=== PATIENT | male | born 1980 | race Caucasian/White ===

== ENCOUNTER 2019-01-04 12:41 | Emergency (ER) | payer MEDICAID ==
[2019-01-04] MEDS ORDERED: Sodium Chloride 0.9% 10 ML Syringe FLUSH PRN (12:54)
[2019-01-04] MEDS ORDERED: Ketorolac 30 MG/ML SDV IVPUSH ONE (12:54)
[2019-01-04] MEDS ORDERED: Ondansetron 4 MG/2 ML SDV IVPUSH ONE (13:14)
[2019-01-04] MEDS ORDERED: Sodium Chloride 0.9% 1,000 ML IV SCH (13:15)
--- NOTE | 2019-01-04 13:35 | EDM.PDOC ---
ED HPI GENERAL MEDICAL PROBLEM - General Chief Complaint: Flank Pain Stated Complaint: POSSIBLE KIDNEY STONES Time Seen by Provider: 01/04/19 13:27 Source of Information: Reports: Patient, Family, RN Notes Reviewed History Limitations: Reports: No Limitations - History of Present Illness INITIAL COMMENTS - FREE TEXT/NARRATIVE: 38-year-old gentleman presents emergency department today complaint of left flank pain, he does have a known history of nephrolithiasis this particular pain started last night was waxing and waning and then became constant later today Bilateral Flank Pain Score (Numeric/FACES): 10 - Related Data Allergies Allergy/AdvReac Type Severity Reaction Status Date / Time No Known Allergies Allergy Verified 01/04/19 12:54 Home Meds: Home Meds NK [No Known Home Meds] 01/04/19 [History] Past Medical History Genitourinary History: Reports: Renal Calculus - Infectious Disease History Infectious Disease History: Reports: Chicken Pox Social & Family History - Tobacco Use Smoking Status *Q: Never Smoker Second Hand Smoke Exposure: No - Caffeine Use Caffeine Use: Reports: Soda - Recreational Drug Use Recreational Drug Use: No ED ROS GENERAL - Review of Systems Review Of Systems: See Below Constitutional: Reports: No Symptoms HEENT: Reports: No Symptoms Respiratory: Reports: No Symptoms Cardiovascular: Reports: No Symptoms GI/Abdominal: Reports: Abdominal Pain, Nausea : Reports: Flank Pain ED EXAM, RENAL/ - Physical Exam Exam: See Below Exam Limited By: No Limitations General Appearance: Alert, Mild Distress Respiratory/Chest: No Respiratory Distress, Lungs Clear, Normal Breath Sounds Cardiovascular: Regular Rate, Rhythm, No Murmur GI/Abdominal: Soft, Tender (Along the left flank) Course - Vital Signs Last Recorded V/S: Last Vital Signs Temp 95.2 F L 01/04/19 13:09 Pulse 82 01/04/19 13:09 Resp 22 H 01/04/19 13:09 BP 147/88 H 01/04/19 13:09 Pulse Ox 99 01/04/19 13:09 - Orders/Labs/Meds Orders: Active Orders 24 hr Category Date Time Status Sodium Chloride 0.9% [Normal Saline] 1,000 ml Med 01/04/19 13:15 Active IV ASDIRECTED Sodium Chloride 0.9% [Saline Flush] Med 01/04/19 12:54 Active 10 ml FLUSH ASDIRECTED PRN Saline Lock Insert [OM.PC] Routine Oth 01/04/19 12:54 Ordered Medication Orders Sodium Chloride (Normal Saline) 1,000 mls @ 999 mls/hr IV ASDIRECTED MARELY Last Admin: 01/04/19 13:27 Dose: 999 mls/hr Sodium Chloride (Saline Flush) 10 ml FLUSH ASDIRECTED PRN PRN Reason: Keep Vein Open Last Admin: 01/04/19 13:02 Dose: 10 ml Labs: Laboratory Tests 01/04/19 01/04/19 01/04/19 Range/Units 13:42 13:42 14:05 WBC 10.9 (4.5-11.0) K/uL RBC 5.46 (4.30-5.90) M/uL Hgb 16.5 H (12.0-15.0) g/dL Hct 48.0 (40.0-54.0) % MCV 88 (80-98) fL MCH 30 (27-31) pg MCHC 34 (32-36) % Plt Count 116 L (150-400) K/uL Neut % (Auto) 82 H (36-66) % Lymph % (Auto) 12 L (24-44) % [place] % (Auto) 6 (2-6) % Eos % (Auto) 0 L (2-4) % Baso % (Auto) 0 (0-1) % Sodium 137 L (140-148) mmol/L Potassium 4.1 (3.6-5.2) mmol/L Chloride 102 (100-108) mmol/L Carbon Dioxide 25 (21-32) mmol/L Anion Gap 14.1 H (5.0-14.0) mmol/L BUN 16 (7-18) mg/dL Creatinine 1.3 (0.8-1.3) mg/dL Est Cr Clr Drug Dosing 72.03 mL/min Estimated GFR (MDRD) > 60 (>60) Glucose 115 H (74-106) mg/dL Calcium 9.2 (8.5-10.1) mg/dL Urine Color Yellow Urine Appearance Clear Urine pH 7.0 (4.5-8.0) Ur Specific [place] 1.015 (1.008-1.030) Urine Protein Negative (NEGATIVE) mg/dL Urine Glucose (UA) Normal (NEGATIVE) mg/dL Urine Ketones 50 H (NEGATIVE) mg/dL Urine Occult Blood Large (NEGATIVE) Urine Nitrite Negative (NEGAITVE) Urine Bilirubin Negative (NEGATIVE) Urine Urobilinogen Normal (NORMAL) mg/dL Ur Leukocyte Esterase Negative (NEGATIVE) Urine RBC 10-20 H (0-5) Urine WBC 0-5 (0-5) Ur Epithelial Cells Rare Amorphous Sediment Not seen Urine Bacteria Moderate Urine Mucus Moderate Meds: Medications Generic Name Dose Route Start Last Admin Trade Name Freq PRN Reason Stop Dose Admin Sodium Chloride 1,000 mls @ 999 mls/hr 01/04/19 13:15 01/04/19 13:27 Normal Saline IV 999 mls/hr ASDIRECTED MARELY Administration Sodium Chloride 10 ml 01/04/19 12:54 01/04/19 13:02 Saline Flush FLUSH 10 ml ASDIRECTED PRN Administration Keep Vein Open Discontinued Medications Generic Name Dose Route Start Last Admin Trade Name Freq PRN Reason Stop Dose Admin Ketorolac Tromethamine 30 mg 01/04/19 12:54 01/04/19 13:01 Toradol IVPUSH 01/04/19 12:55 30 mg ONETIME ONE Administration Ondansetron HCl 4 mg 01/04/19 13:14 01/04/19 13:24 Zofran IVPUSH 01/04/19 13:15 4 mg ONETIME ONE Administration Departure - Departure Time of Disposition: 14:52 Disposition: Home, Self-Care 01 Condition: Fair Clinical Impression: Left nephrolithiasis - Discharge Information Referrals: Jone Petty MD [Primary Care Provider] - Forms: ED Department Discharge Additional Instructions: Use ibuprofen for baseline pain control, use Percocet for breakthrough pain, Please followup with your primary care provider in 3-5 days if not better, please call return to the emergency department with worsening of symptoms. - My Orders Last 24 Hours: My Active Orders 01/04/19 13:15 Sodium Chloride 0.9% [Normal Saline] 1,000 ml IV ASDIRECTED - Assessment/Plan Last 24 Hours: My Active Orders 01/04/19 13:15 Sodium Chloride 0.9% [Normal Saline] 1,000 ml IV ASDIRECTED Plan: Assessment Acuity = acute Site and laterality = left nephrolithiasis Etiology = unknown Manifestations = left flank pain Location of injury = Home Lab values = CBC, BMP unremarkable urinalysis reveals 10-[address] scan demonstrates a 4-5 mm stone distal left ureter approximately 2 -3 cm from the UVJ Plan Prescription written for Percocet 5/325 one tab by mouth 3 times a day when necessary total #10 he is going to push fluids follow-up primary care 3-5 days if no improvement This note was dictated using [employer]ik[employer] voice recognition software please call with any questions on syntax or grammar.
--- NOTE | 2019-01-04 14:43 | CRLCT ---
INDICATION: left flank [id number] images HISTORY: Left flank pain. COMPARISON: None. TECHNIQUE: CT of the abdomen and pelvis. No intravenous contrast. Coronal/sagittal reconstruction images. FINDINGS: Lung bases: There is no pleural or pericardial effusion. The heart size is normal. There is dependent atelectasis. There is no acute airspace disease. There is no basilar pneumothorax. Abdomen/pelvis: The hepatic morphology is normal. No dilation of intrahepatic biliary radicals. No perihepatic ascites. No calcified gallstone. Normal caliber common bile duct. No pancreatic mass, pancreatic duct dilation, or glandular atrophy. The spleen size is normal. Bilateral nephroliths. For example, a 4 mm stone in the interpolar region of the left kidney on image 97 of series 2. Left hydronephrosis and hydroureter. This is secondary to a stone measuring 4-5 mm in the distal left ureter, which measures 708 Hounsfield units. There is no right-sided urolith identified. The seminal vesicles are normal. There is no wall thickening within the small bowel or colon. There is no perienteric edema. There is no evidence for a small bowel or colonic obstruction. No evidence for acute appendicitis. Nonenlarged retroperitoneal lymph nodes. No abdominal or pelvic lymphadenopathy by size criteria. The bone windows demonstrate no lytic or blastic bone lesions. There is osteophytic spurring at the endplates of the thoracolumbar spine. On sagittal reconstruction images, there is discogenic sclerosis and disc height loss at L4-5 and L5-S1. Minimal retrolisthesis of L4 on L5. IMPRESSION: 1. Moderate left hydronephrosis and hydroureter, secondary to a 4-5 mm stone in the distal left ureter. This stone is approximately 2-3 cm from the left UVJ. 2. Additional nephroliths in both intrarenal collecting systems. 3. Normal caliber appendix. 4. No abdominal or pelvic lymphadenopathy. Dictated by Ron Mccracken MD @ 01/04/2019 2:40:52 PM Please note that all CT scans at this facility use dose modulation, iterative reconstruction, and/or weight-based dosing when appropriate to reduce radiation dose to as low as reasonably achievable. Dictated by: Ron Mccracken MD @ 01/04/2019 14:41:09 (Electronically Signed)
== END 2019-01-04 15:04 | disposition home or self-care (01) ==
LOC: JP.ED 12:41
DX: N13.2 Hydronephrosis with renal and ureteral calculous obstruction (principal)
CPT/HCPCS: 36415; 74176; 80048; 81001; 85025; 96361; 96374; 96375; 99284; J1885; J2405; J7030

== ENCOUNTER 2023-05-27 06:35 | Emergency (ER) | payer MEDICAID ==
[2023-05-27] MEDS ORDERED: Sodium Chloride 0.9% 1,000 ML IV STA (07:00)
[2023-05-27] MEDS ORDERED: Ondansetron 4 MG/2 ML SDV IVPUSH ONE (07:00)
[2023-05-27] MEDS ORDERED: Sodium Chloride 0.9% 10 ML Syringe FLUSH PRN ×2 (07:00)
[2023-05-27] MEDS ORDERED: Ketorolac 30 MG/ML SDV IVPUSH ONE (07:04)
[2023-05-27 07:15] LABS: BASOPHILS ABSOLUTE AUTO 0.03 K/uL (0.00-0.10); BASOPHILS PERCENT AUTO 0.3 % (0.1-1.3); EOSINOPHILS ABSOLUTE AUTO 0.04 K/uL (0.00-0.40); EOSINOPHILS PERCENT AUTO 0.4 % (0.0-5.4); HEMATOCRIT 48.2 % (38.4-49.7); HEMOGLOBIN 16.9 g/dL (12.9-16.9); IMMATURE GRAN ABSOLUTE AUTO 0.05 K/uL (0.00-0.23); IMMATURE GRAN PERCENT AUTO 0.4 % (0.0-0.7); LYMPHOCYTES ABSOLUTE AUTO 1.87 K/uL (0.8-3.3); LYMPHOCYTES PERCENT AUTO 16.5 % (11.4-47.7); MEAN CORPUSCULAR HEMOGLOBIN 30.6 pg (31.6-35.5); MEAN CORPUSCULAR HGB CONC 35.1 g/dL (31.6-35.5); MEAN CORPUSCULAR VOLUME 87.2 fL (81.4-99.0); MONOCYTES ABSOLUTE AUTO 0.59 K/uL (0.20-0.90); MONOCYTES PERCENT AUTO 5.2 % (3.3-12.6); NEUTROPHILS ABSOLUTE AUTO 8.78 K/uL (1.0-7.6); NEUTROPHILS PERCENT AUTO 77.2 % (40.0-78.1); PLATELET COUNT,PLT 108 K/uL (130-375); RED BLOOD CELL COUNT 5.53 M/uL (4.14-5.76); WHITE BLOOD CELL COUNT,WBC 11.4 K/uL (3.2-11.0)
[2023-05-27] MEDS: Morphine 4 MG/ML Syringe IVPUSH PRN ×2 (07:21→09:18)
[2023-05-27 07:28] LABS: ANION GAP 11.2 mmol/L (5.0-14.0); CALCIUM 8.8 mg/dL (8.5-10.1); CREATININE 1.2 mg/dL (0.8-1.3); EST CRCL DRUG DOSING (CG) 82.8 mL/min
[2023-05-27 08:53] LABS: APPEARANCE,URINE SLIGHTLY CLOUDY (CLEAR); BILIRUBIN,URINE NEGATIVE (NEGATIVE); COLOR,URINE YELLOW (YELLOW); GLUCOSE,URINE NEGATIVE (NEGATIVE); KETONES,URINE NEGATIVE (NEGATIVE); LEUKOCYTE ESTERASE,URINE NEGATIVE (NEGATIVE); NITRITE,URINE NEGATIVE (NEGATIVE); OCCULT BLOOD,URINE MODERATE (NEGATIVE); PROTEIN,URINE 100 mg/dL (NEGATIVE); UROBILINOGEN,URINE 0.2 EU/dL (0.2-1.0)
[2023-05-27 09:00] LABS: AMORPHOUS SEDIMENT,URINE NOT SEEN; BACTERIA,URINE NOT SEEN; EPITHELIAL CELLS,URINE FEW; MUCUS,URINE MODERATE; RBC,URINE 20-30 (0-5); WBC,URINE 0-5 (0-5)
[2023-05-27] MEDS ORDERED: Oxybutynin 5 MG Tab PO SCH (09:00)
== END 2023-05-27 09:58 | disposition home or self-care (01) ==
LOC: JP.ED 06:35
DX: N13.2 Hydronephrosis with renal and ureteral calculous obstruction (principal); I10 Essential (primary) hypertension; M19.90 Unspecified osteoarthritis, unspecified site; R73.9 Hyperglycemia, unspecified
CPT/HCPCS: 36415; 74176; 80048; 81001; 85025; 96361; 96374; 96375; 96376; 99284; A9270; J1885; J2270; J2405; J3490; J7030